=== PATIENT | male | born 1955 | race Caucasian/White ===

== ENCOUNTER 2017-03-08 17:53 | Inpatient (IN) | payer BC, OTHER ==
[2017-03-08 20:31] LABS: Glucose,Whole Blood 208 mg/dL (75-99)
[2017-03-08] MEDS ORDERED: ONDANSETRON 4 MG TAB PO PRN (23:18)
[2017-03-08] MEDS ORDERED: PROMETHAZINE 25 MG TAB PO PRN (23:19)
[2017-03-08] MEDS ORDERED: MELATONIN 1 MG TAB PO PRN (23:20)
[2017-03-08 23:31] LABS: Glucose,Whole Blood 167 mg/dL (75-99)
[2017-03-09] MEDS: SODIUM CHLORIDE 0.9% 1,000 ML IV SCH ×2 (00:05→21:04)
[2017-03-09] MEDS: ENOXAPARIN 40 MG/0.4 ML SYRINGE SQ SCH ×2 (00:05→08:35)
[2017-03-09] MEDS: PANTOPRAZOLE 40 MG TABLET PO SCH ×2 (00:07→21:03)
[2017-03-09] MEDS: ATORVASTATIN 20 MG TAB PO SCH ×2 (00:08→21:02)
[2017-03-09] MEDS: metFORMIN 500 MG TAB PO SCH ×3 (00:08→17:37)
[2017-03-09] MEDS: IBUPROFEN 200 MG TAB PO PRN ×4 (00:09→21:41)
[2017-03-09] MEDS: QUEtiapine 50 MG TAB PO SCH ×2 (00:09→21:03)
[2017-03-09] MEDS: LEVOTHYROXINE 137 MCG TAB PO SCH (06:07)
[2017-03-09 06:44] LABS: Glucose,Whole Blood 143 mg/dL (75-99)
[2017-03-09] MEDS: BUDESONIDE 0.5 MG/2 ML NEBU INHALATION SCH ×2 (07:53→19:26)
[2017-03-09] MEDS: SERTRALINE 50 MG TAB PO SCH (08:36)
[2017-03-09] MEDS: AMITRIPTYLINE HCL 25 MG TAB PO SCH (08:36)
[2017-03-09] MEDS: INSULIN LISPRO (humaLOG) 300 UNIT/3 ML VIAL SQ SCH ×4 (08:36→21:02)
[2017-03-09] MEDS: METOPROLOL SUCCINATE (ER) 100 MG TAB.ER.24H PO SCH (08:36)
[2017-03-09] MEDS: FLUTICASONE 50MCG/SPRAY NASAL 16GM EA NOSTRIL SCH ×2 (08:47→21:02)
[2017-03-09] MEDS: clonazePAM 1 MG TAB PO SCH ×3 (08:47→21:04)
[2017-03-09] MEDS: TIOTROPIUM 18 MCG/PUFF INHALER INHALATION SCH (11:28)
[2017-03-09 11:47] LABS: Aty Lym Flag Slight; CH 29.6; CHCM 33.5; HCT 37.1 % (39.0-53.0); HDW 2.65; HGB 12.9 gm/dL (13.0-17.5); MCH 30.9 pg (25.0-35.0); MCHC 34.8 g/dL (31.0-37.0); MCV 88.7 fL (80.0-100.0); Mean Platelet Volume 7.5; RBC 4.18 m/uL (4.30-5.90); RDW 13.5 % (11.5-15.5); WBC 12.1 k/uL (3.8-10.6); WBC (Perox) 12.54
[2017-03-09 11:55] LABS: ALT 47 U/L (21-72); AST 36 U/L (17-59); Alkaline Phosphatase 72 U/L (38-126); Anion Gap 11 mmol/L; Blood Urea Nitrogen 11 mg/dL (9-20); Calcium 8.2 mg/dL (8.4-10.2); Carbon Dioxide 22 mmol/L (22-30); Chloride 110 mmol/L (98-107); Glucose 175 mg/dL (74-99); Non-African American GFR(MDRD) >60 (>60 ml/min/1.73 sqM); Potassium 3.8 mmol/L (3.5-5.1); Sodium 143 mmol/L (137-145); Total Bilirubin 0.2 mg/dL (0.2-1.3)
[2017-03-09 11:58] LABS: Glucose,Whole Blood 154 mg/dL (75-99)
[2017-03-09 12:05] LABS: Total Protein 5.7 g/dL (6.3-8.2)
[2017-03-09 12:21] LABS: Add Differential Manual Differential
[2017-03-09 12:23] LABS: Nucleated Red Blood Cells 0 /100 WBC (0-0); Total Cells Counted 100
[2017-03-09 12:24] LABS: RBC Morphology Normal
[2017-03-09 17:04] LABS: Glucose,Whole Blood 100 mg/dL (75-99)
[2017-03-09 20:56] LABS: Glucose,Whole Blood 120 mg/dL (75-99)
[2017-03-10] MEDS: LEVOTHYROXINE 137 MCG TAB PO SCH (06:45)
[2017-03-10 07:23] LABS: Glucose,Whole Blood 92 mg/dL (75-99)
[2017-03-10] MEDS: AMITRIPTYLINE HCL 25 MG TAB PO SCH (08:30)
[2017-03-10] MEDS: FLUTICASONE 50MCG/SPRAY NASAL 16GM EA NOSTRIL SCH ×2 (08:30→20:22)
[2017-03-10] MEDS: metFORMIN 500 MG TAB PO SCH ×2 (08:30→17:23)
[2017-03-10] MEDS: SERTRALINE 50 MG TAB PO SCH (08:30)
[2017-03-10] MEDS: ENOXAPARIN 40 MG/0.4 ML SYRINGE SQ SCH (08:30)
[2017-03-10] MEDS: METOPROLOL SUCCINATE (ER) 100 MG TAB.ER.24H PO SCH (08:30)
[2017-03-10] MEDS: INSULIN LISPRO (humaLOG) 300 UNIT/3 ML VIAL SQ SCH ×4 (08:34→21:04)
[2017-03-10] MEDS: clonazePAM 1 MG TAB PO SCH ×3 (08:36→21:04)
[2017-03-10] MEDS: BUDESONIDE 0.5 MG/2 ML NEBU INHALATION SCH ×2 (08:44→20:47)
[2017-03-10] MEDS: TIOTROPIUM 18 MCG/PUFF INHALER INHALATION SCH (08:44)
--- NOTE | 2017-03-10 08:51 | HP ---
DATE OF ADMISSION: 03/08/2017 PRESENTING COMPLAINT: Depression, overdose. HISTORY OF PRESENTING COMPLAINT: This is a patient who had presented to [facility] is a poole of sentiments. Patient went and had an overdose of Klonopin, Celexa, Zoloft and metoprolol. Patient went into respiratory failure, had to be intubated. Patient had evidence of depression, subsequently patient was extubated. Patient is felt to have some aspiration pneumonitis. Patient is seen by Dr. Anahi Fitch from Pulmonary. There is no psychiatry available at [facility], hence I transferred the patient here to [facility]. Patient not suicidal any more but depressed. Patient now tolerating a diet. Did walk to the bathroom with support. Currently not suicidal but depressed. Breathing is stable. REVIEW OF SYSTEMS: CONSTITUTIONAL: Tired. HEENT: None. RESPIRATORY: Some shortness of breath before. CARDIOVASCULAR: None. GASTROINTESTINAL: None. GENITOURINARY: None. MUSCULOSKELETAL: Some pain in the joints. DERMATOLOGICAL: None. HEMATOLOGICAL: None. LYMPHATICS: None. PSYCHIATRY: Depressed. NEUROLOGICAL: None. Past history of depression, hypertension, hyperlipidemia, GERD, diabetes, osteoarthritis. PAST SURGICAL HISTORY: Cholecystectomy, hernia repair, right and left hand surgery, right foot surgery, ( ) surgery, cholecystectomy. SOCIAL HISTORY: Patient did some smoking, alcohol in the past. Currently not working, , patient is a [employer] and no blood products. Family history is reviewed and no contributory to presentation. HOME MEDICATIONS, CURRENT MEDICATIONS: 1. Elavil 25 mg q.h.s. 2. Lipitor 20 mg q.h.s. 3. Pulmicort 0.5 mg b.i.d. 4. Klonopin 1 mg p.o. t.i.d. 5. Lovenox 40 mg subQ daily. 6. Flonase. 7. Advil 200 mg q.6 p.r.n. 8. Humalog. 9. Synthroid 137 mcg a day. 10. Melatonin 1 mg q.h.s. p.r.n. 11. Glucophage 1000 mg p.o. b.i.d. 12. Toprol XL 100 mg p.o. daily. 13. Zofran 8 mg q.12 p.r.n. 14. Protonix 40 mg q.h.s. 15. Phenergan 12.5 q.6 p.r.n. 16. Seroquel 50 mg q,h.s. 17. Zoloft 50 mg p.o. daily. 18. Saline 10 mL an hour. 19. Spiriva 1 puff daily. Allergy to ADHESIVES AND CODEINE. On examination, temperature 97, pulse 62, respirations 16, blood pressure 106/76 , pulse ox 97% on room air. GENERAL APPEARANCE: Well built, BMI 33.2, lying in bed, not in distress. EYES: Pupils equal, conjunctivae normal. HEENT: Oral cavity normal. NECK: JVD not raised, mass not palpable. Respiratory effort normal. Lungs diminished breath sounds. Mild wheezing. CARDIOVASCULAR: First and second sounds are normal, no edema. ABDOMEN: Soft, nontender. Liver and spleen not palpable. LYMPHATICS: No lymph node palpable. PSYCHIATRY: Alert and oriented x3. Mood and affect somewhat depressed appearing. NEUROLOGICAL: Pupils equal, cranial nerves grossly intact. Power and sensation grossly intact. MUSCULOSKELETAL: Evidence of osteoarthritis in multiple joints. INVESTIGATIONS: White count 12.1, hemoglobin 12.9, potassium 3.8, BUN and creatinine is normal. ASSESSMENT: 1. Major depression with suicide attempt, not suicidal any more. 2. Obesity, body mass index 33.2. 3. Essential hypertension. 4. Hyperlipidemia. 5. Gastroesophageal reflux disease. 6. Diabetes mellitus type 2 on oral hypoglycemia. 7. Osteoarthritis in multiple joints. PLAN: Home medications will be continued. Accu-Cheks are being followed. Patient is medically stable from medical standpoint to transfer to [facility] psychiatric unit if patient accept there. On-call Psychiatry was consulted last night. Care was discussed with the patient. He is ready to go down there, if things are fine. MTDD
--- NOTE | 2017-03-10 09:18 | CONS ---
DATE OF SERVICE: 03/09/2017 IDENTIFYING DATA: A 61-year-old male patient. HISTORY OF PRESENT ILLNESS: Mr. Hitchcock is admitted to the medical floor at the [facility] as a transfer from [facility], status post multiple drug overdose. Patient related that not wanting to be on medications and last night, he thought he was fine. He says Friday morning he woke up like a tyrant. Says he has battled severe depression and anxiety for years and he had a feeling like he could not take this anymore and took all of his psychotropic medications as well as Synthroid and hypertension medication, 96 pills in all. He says as soon as he did he called 911. He was alone when he took the pills. He says he is glad that he is alive and never wants to be without his family. PSYCHIATRIC HISTORY: He sees a therapist, Nataliya through [employer] and psychiatrist, Dr. Richardson. He most recently has been on Klonopin, Zoloft and Seroquel as well as Elavil. He has never had any inpatient psychiatric hospitalizations. He has no history of suicide attempts. PSYCHIATRIC FAMILY HISTORY: Grandfather with PTSD. MEDICAL HISTORY: Hypertension, diabetes mellitus, IBS, asthma, COPD. CURRENT MEDICATIONS: Elavil 25 mg daily, Lipitor, Pulmicort, Klonopin 1 mg t.i.d., Lovenox, Flonase, Advil p.r.n., Humalog, Synthroid, melatonin p.r.n., Glucophage, Toprol XL, Zofran p.r.n., Protonix, Phenergan p.r.n., Seroquel 50 mg at bedtime, Zoloft 50 mg daily, Spiriva. DRUG AND ALCOHOL HISTORY: Patient drank alcohol when he was younger. Last alcoholic drink was in May. SOCIAL HISTORY: He lives with his and son. He has a younger daughter who is out of the house. He has applied for disability. 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 On mental status exam he is alert, cooperative with the interview. His speech was fluent, not rapid or pressured. His thought processes are organized. His mood is described as pretty down. His affect is restricted. He denies any thoughts of harm to self or others. No evidence of active psychosis cognitively. Appears to be grossly intact. IMPRESSION: 1. Major depressive disorder, recurrent, severe. 2. Unspecified anxiety disorder. 3. Rule out history of alcohol use disorder. PLAN: Recommend patient be admitted to the inpatient psychiatric unit after medical stabilization to stabilize depression and to continue to monitor regarding suicidal ideations. Patient is agreeable for voluntary admission. Currently being prescribed Zoloft, Seroquel, Klonopin and Elavil. Will monitor for any medication side effects. AST and ALT are within normal limits and BUN and creatinine are within normal limit. Consider change in psychotropic medications to help improve recent severe depression. Medications will further be assessed on the inpatient psychiatric unit. PAWAN
[2017-03-10] MEDS: IBUPROFEN 200 MG TAB PO PRN (10:44)
[2017-03-10 12:39] LABS: Glucose,Whole Blood 99 mg/dL (75-99)
--- NOTE | 2017-03-10 13:51 | DS ---
DATE OF ADMISSION: 03/08/17 DATE OF DISCHARGE: 03/09/17 FINAL DIAGNOSES: 1. Major depression, recurrent, possibly. 2. Obesity, body mass index 33.2. 3. Essential hypertension. 4. Hyperlipidemia. 5. Chronic gastroesophageal reflux disease. 6. Diabetes mellitus type 2, on oral hypoglycemia. 7. Primary osteoarthritis of multiple joints. 8. Possible chronic obstructive pulmonary disease. HOSPITAL COURSE: This patient was transferred from [facility] following an overdose of medications including Klonopin, Celexa, Zoloft, had to be intubated there. The patient self-extubated. I transferred patient here to [facility] because of availability of psychiatrist. Patient doing better, no suicidal anymore. Awaiting at this point evaluation by a psychiatrist. On exam, lungs decreased breath sounds. CARDIOVASCULAR: First and second sounds. Patient is tolerating his diet. PSYCH: Alert and oriented x3, slightly depressed appearing. DISPOSITION: 3 [place] if accepted by Psychiatry, otherwise, if cleared by them, patient will then go home. CURRENT MEDICATIONS: 1. Flonase 2 sprays each nostril b.i.d. 2. Synthroid 137 mcg p.o. daily. 3. Prilosec 20 mg p.o. q.h.s. 4. Klonopin 1 mg p.o. t.i.d. 5. Glucophage 1000 mg b.i.d. 6. Motrin 200 mg p.o. q.6 p.r.n. 7. Seroquel 50 mg p.o. q.h.s. 8. Zoloft 50 mg p.o. daily. 9. ProAir 1 to 2 puffs q.6 p.r.n. 10. Elavil 25 mg p.o. daily. 11. Lipitor 40 mg q.h.s. 12. Pulmicort 0.5 mg inhalation b.i.d. 13. Toprol XL 100 mg p.o. daily. 14. Spiriva 1 puff daily. Patient as outpatient should follow with Dr. Anna Kim. [facility] CENTERJosiah
[2017-03-10] MEDS: IBUPROFEN 400 MG TAB PO PRN ×2 (14:51→21:04)
[2017-03-10 17:04] LABS: Glucose,Whole Blood 115 mg/dL (75-99)
--- NOTE | 2017-03-10 18:08 | P.PN ---
Subjective Date of service 03/10/2017. Progress note being dictated for Dr. Graves. Interval history: This is a 61-year-old gentleman admitted with severe major depression, recurrent, attempted overdose of Klonopin, Celexa, Zoloft and multiple other medical issues. Evaluated by psychiatry and patient recommended for inpatient mental health unit. Suicide precautions maintained while awaiting transfer. Denies any chest pain, palpitations or increasing shortness of breath. Objective - Vital Signs Vital signs: Vital Signs Temp 97.2 F L 03/10/17 15:00 Pulse 54 L 03/10/17 15:00 Resp 18 03/10/17 15:00 BP 137/77 03/10/17 15:00 Pulse Ox 95 03/10/17 15:00 Intake & Output 03/09/17 03/10/17 03/10/17 18:59 06:59 18:59 Intake Total 720 Balance 720 Intake: Oral 720 Other: Voiding Method Toilet Toilet Urinal Urinal # Voids 3 0 3 - Exam PHYSICAL EXAM: VITAL SIGNS: As above GENERAL: [Sitting up in bed, no acute distress] HEENT: [Pupils equal conjunctiva normal. Oral mucosa moist] NECK: [Supple, no JVD] RESPIRATORY EFFORT:[ Normal] LUNGS: [Diminished, no wheezes rhonchi or crackles] CARDIOVASCULAR[ regular S1 and S2, no murmurs rubs or gallops, no edema] GI: [Abdomen soft, nontender, nondistended, no organomegaly, positive bowel sounds.] PSYCH: [Alert and oriented -3, mood and affect depressed appearing, cooperative NEURO: [No focal deficits, strength and sensation grossly intact] - Labs CBC & Chem 7: 03/09/17 11:09 03/09/17 11:09 Labs: Abnormal Lab Results - Last 24 Hours (Table) 03/09/17 03/10/17 Range/Units 20:45 16:59 POC Glucose (mg/dL) 120 H 115 H (75-99) mg/dL Assessment and Plan Plan: 1. [ Severe depression, recurrent]. 2. [ Attempted overdose, requiring intubation 3. [ Obesity, BMI 33.2]. 4. [ Hyperlipidemia]. 5. [ Hypertension]. 6. [Gastroesophageal reflux disease]. 7. [ Diabetes mellitus type 2]. 8. Osteoarthritis, multiple joints 9. COPD Plan: Continue on current medication regime ,monitoring and symptomatic treatment. Maintain suicide precautions. Awaiting discharge to inpatient mental health unit. Prognosis guarded. Further recommendations to follow. The impression and plan of care has been dictated as directed. : I performed a H&P examination of this patient and discussed the same with the dictator. I agree with the dictator's note. Any additional findings/opinions/ etc. will be noted.
[2017-03-10] MEDS: ATORVASTATIN 20 MG TAB PO SCH (20:22)
[2017-03-10] MEDS: QUEtiapine 50 MG TAB PO SCH (20:22)
[2017-03-10] MEDS: PANTOPRAZOLE 40 MG TABLET PO SCH (20:22)
[2017-03-10 21:17] LABS: Glucose,Whole Blood 110 mg/dL (75-99)
[2017-03-11] MEDS: SODIUM CHLORIDE 0.9% 1,000 ML IV SCH (00:19)
[2017-03-11] MEDS: LEVOTHYROXINE 137 MCG TAB PO SCH (06:32)
[2017-03-11 07:03] VITALS: TEMP 97
[2017-03-11] MEDS: INSULIN LISPRO (humaLOG) 300 UNIT/3 ML VIAL SQ SCH ×2 (07:19→12:33)
[2017-03-11 07:41] LABS: Glucose,Whole Blood 129 mg/dL (75-99)
[2017-03-11] MEDS: clonazePAM 1 MG TAB PO SCH (07:50)
[2017-03-11] MEDS: SERTRALINE 50 MG TAB PO SCH (07:51)
[2017-03-11] MEDS: metFORMIN 500 MG TAB PO SCH (07:51)
[2017-03-11] MEDS: AMITRIPTYLINE HCL 25 MG TAB PO SCH (07:51)
[2017-03-11] MEDS: ENOXAPARIN 40 MG/0.4 ML SYRINGE SQ SCH (07:51)
[2017-03-11] MEDS: METOPROLOL SUCCINATE (ER) 100 MG TAB.ER.24H PO SCH (07:51)
[2017-03-11] MEDS: FLUTICASONE 50MCG/SPRAY NASAL 16GM EA NOSTRIL SCH (07:52)
[2017-03-11] MEDS: IBUPROFEN 400 MG TAB PO PRN ×2 (07:56→14:57)
[2017-03-11] MEDS: BUDESONIDE 0.5 MG/2 ML NEBU INHALATION SCH (08:24)
[2017-03-11] MEDS: TIOTROPIUM 18 MCG/PUFF INHALER INHALATION SCH (08:24)
[2017-03-11 12:28] LABS: Glucose,Whole Blood 118 mg/dL (75-99)
--- NOTE | 2017-03-11 13:21 | P.DS ---
Providers Date of admission: 03/08/17 20:02 Expected date of discharge: 03/11/17 Attending physician: Barrington Graves Final Diagnoses: Consults: 03/08/17 22:50 Consult Physician Stat Consulting Provider: Natasha Jackson Consult Reason/Comments: attempted sucide Do you want consulting provider notified?: Yes Primary care physician: Anna Kim Hospital Course: 1. [ Severe depression, recurrent]. 2. [ Attempted overdose, requiring intubation 3. [ Obesity, BMI 33.2]. 4. [ Hyperlipidemia]. 5. [ Hypertension]. 6. [Gastroesophageal reflux disease]. 7. [ Diabetes mellitus type 2]. 8. Osteoarthritis, multiple joints 9. COPD Hospital course:This is a 61-year-old gentleman admitted with severe major depression, recurrent, attempted overdose of Klonopin, Celexa, Zoloft and multiple other medical issues. Evaluated by psychiatry and patient recommended/ accepted for inpatient mental health unit. Patient is medically cleared for discharge to mental health unit. Patient is being discharged in a stable condition with guarded prognosis. The impression and plan of care has been dictated as directed as a scribe. Dr. Beltran performed a H&P examination of this patient and discussed the same with the dictator. I agree with the dictator's note. Any additional findings/opinions/ etc. will be noted. Patient Condition at Discharge: Stable Plan - Discharge Summary New Discharge Prescriptions: New Amitriptyline HCl [Elavil] 25 mg PO DAILY tab Atorvastatin [Lipitor] 20 mg PO HS tab Budesonide [Pulmicort] 0.5 mg INHALATION RT-BID neb Metoprolol Succinate (ER) [Toprol XL] 100 mg PO DAILY tab Tiotropium 18 Mcg/Puff [Spiriva] 1 puff INHALATION RT-DAILY inhaler Continue metFORMIN HCL [Glucophage] 1,000 mg PO BID Fluticasone Propionate [Flonase] 2 spray EA NOSTRIL BID Omeprazole [PriLOSEC] 20 mg PO HS clonazePAM [KlonoPIN] 1 mg PO TID Levothyroxine Sodium [Synthroid] 137 mcg PO DAILY QUEtiapine [SEROquel] 50 mg PO HS Sertraline [Zoloft] 50 mg PO DAILY Ibuprofen [Motrin] 200 mg PO Q6HR PRN PRN Reason: Pain Albuterol Sulfate [Proair Hfa] 1 - 2 puff INHALATION RT-Q6H PRN PRN Reason: sob Discontinued Metoprolol Tartrate [Lopressor] 100 mg PO DAILY Discharge Medication List Fluticasone Propionate [Flonase] 2 spray EA NOSTRIL BID 06/09/14 [History] Levothyroxine Sodium [Synthroid] 137 mcg PO DAILY 06/09/14 [History] Omeprazole [PriLOSEC] 20 mg PO HS 06/09/14 [History] clonazePAM [KlonoPIN] 1 mg PO TID 06/09/14 [History] metFORMIN HCL [Glucophage] 1,000 mg PO BID 06/09/14 [History] Ibuprofen [Motrin] 200 mg PO Q6HR PRN 03/08/17 [History] QUEtiapine [SEROquel] 50 mg PO HS 03/08/17 [History] Sertraline [Zoloft] 50 mg PO DAILY 03/08/17 [History] Albuterol Sulfate [Proair Hfa] 1 - 2 puff INHALATION RT-Q6H PRN 03/09/17 [ History] Amitriptyline HCl [Elavil] 25 mg PO DAILY tab 03/09/17 [Rx] Atorvastatin [Lipitor] 20 mg PO HS tab 03/09/17 [Rx] Budesonide [Pulmicort] 0.5 mg INHALATION RT-BID neb 03/09/17 [Rx] Metoprolol Succinate (ER) [Toprol XL] 100 mg PO DAILY tab 03/09/17 [Rx] Tiotropium 18 Mcg/Puff [Spiriva] 1 puff INHALATION RT-DAILY inhaler 03/09/17 [ Rx] Patient Instructions/Handouts: Type 2 Diabetes in Adults (DC) Activity/Diet/Wound Care/Special Instructions: stable for dc to [facility] Discharge Disposition: TRANSFER TO PSYCH HOSP/UNIT
[2017-03-11 14:47] VITALS: BP 133/75; PULSE 61; RESP 20
== END 2017-03-11 15:47 | DRG 885 ==
LOC: 4MS4W 20:02
PROVIDERS: ADMIT Hospitalist; ATTEND Hospitalist
DX: F33.2 Major depressive disorder, recurrent severe without psychotic features (principal); E11.9 Type 2 diabetes mellitus without complications; I10 Essential (primary) hypertension; E78.5 Hyperlipidemia, unspecified; K21.9 Gastro-esophageal reflux disease without esophagitis; J44.9 Chronic obstructive pulmonary disease, unspecified; F41.9 Anxiety disorder, unspecified; K58.9 Irritable bowel syndrome, unspecified; E66.9 Obesity, unspecified; M19.91 Primary osteoarthritis, unspecified site; Z91.5 Personal history of self-harm; Z79.899 Other long term (current) drug therapy; Z88.5 Allergy status to narcotic agent; Z91.048 Other nonmedicinal substance allergy status; Z87.09 Personal history of other diseases of the respiratory system; Z56.0 Unemployment, unspecified; Z90.49 Acquired absence of other specified parts of digestive tract; Z81.8 Family history of other mental and behavioral disorders; Z87.891 Personal history of nicotine dependence; Z79.1 Long term (current) use of non-steroidal anti-inflammatories (NSAID); Z79.4 Long term (current) use of insulin; Z79.51 Long term (current) use of inhaled steroids
CPT/HCPCS: 80053; 85025; 94640

== ENCOUNTER 2017-03-11 14:51 | Inpatient (IN) | payer MEDICAID ==
[2017-03-11] MEDS ORDERED: MAG HYDROX/AL HYDROX/SIMETH 30 ML CUP PO PRN (15:15)
[2017-03-11] MEDS ORDERED: MAGNESIUM HYDROXIDE 2,400 MG/10 ML CUP PO PRN (15:15)
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
[2017-03-11] MEDS ORDERED: IBUPROFEN 200 MG TAB PO PRN (17:26)
[2017-03-11] MEDS ORDERED: ALBUTEROL INHALER 60 PUFF/8 GM INHALER INHALATION PRN (17:26)
[2017-03-11 18:22] LABS: Glucose,Whole Blood 115 mg/dL (75-99)
[2017-03-11] MEDS: INSULIN LISPRO (humaLOG) 300 UNIT/3 ML VIAL SQ SCH ×2 (18:23→20:32)
[2017-03-11] MEDS: ALBUTEROL INHALER 60 PUFF/8 GM INHALER INHALATION PRN (19:51)
[2017-03-11] MEDS: BUDESONIDE 0.5 MG/2 ML NEBU INHALATION SCH (19:51)
[2017-03-11 20:33] LABS: Glucose,Whole Blood 122 mg/dL (75-99)
[2017-03-11] MEDS: FLUTICASONE 50MCG/SPRAY NASAL 16GM EA NOSTRIL SCH (20:33)
[2017-03-11] MEDS: metFORMIN 500 MG TAB PO SCH (20:34)
[2017-03-11] MEDS: ATORVASTATIN 20 MG TAB PO SCH (20:34)
[2017-03-11] MEDS: PANTOPRAZOLE 40 MG TABLET PO SCH (20:34)
[2017-03-11] MEDS: QUEtiapine 50 MG TAB PO SCH (20:34)
[2017-03-11] MEDS: ACETAMINOPHEN TAB 325 MG TAB PO PRN (20:38)
[2017-03-11] MEDS ORDERED: QUEtiapine 50 MG TAB PO SCH (21:00)
[2017-03-11] MEDS ORDERED: clonazePAM 1 MG TAB PO SCH (22:00)
[2017-03-11] MEDS: clonazePAM 1 MG TAB PO SCH (22:42)
[2017-03-12] MEDS: LEVOTHYROXINE 137 MCG TAB PO SCH (06:05)
[2017-03-12 06:13] LABS: Glucose,Whole Blood 113 mg/dL (75-99)
[2017-03-12] MEDS: INSULIN LISPRO (humaLOG) 300 UNIT/3 ML VIAL SQ SCH ×4 (07:47→20:35)
[2017-03-12] MEDS: METOPROLOL SUCCINATE (ER) 100 MG TAB.ER.24H PO SCH (08:47)
[2017-03-12] MEDS: clonazePAM 1 MG TAB PO SCH ×3 (08:47→20:35)
[2017-03-12] MEDS: DULoxetine HCL 30 MG CAPSULE.DR PO SCH (08:47)
[2017-03-12] MEDS: metFORMIN 500 MG TAB PO SCH ×2 (08:47→20:35)
[2017-03-12] MEDS: FLUTICASONE 50MCG/SPRAY NASAL 16GM EA NOSTRIL SCH ×2 (08:47→20:35)
[2017-03-12] MEDS: AMITRIPTYLINE HCL 25 MG TAB PO SCH (08:47)
[2017-03-12] MEDS: ACETAMINOPHEN TAB 325 MG TAB PO PRN ×2 (08:48→13:27)
[2017-03-12] MEDS ORDERED: SERTRALINE 50 MG TAB PO SCH (09:00)
[2017-03-12] MEDS: BUDESONIDE 0.5 MG/2 ML NEBU INHALATION SCH ×2 (09:40→21:25)
[2017-03-12] MEDS: TIOTROPIUM 18 MCG/PUFF INHALER INHALATION SCH (09:40)
[2017-03-12 09:42] LABS: Basophils % (A) 1 %; CH 30.2; CHCM 33.7; Eosinophils # (A) 0.3 k/uL (0-0.7); Eosinophils % (A) 4 %; HDW 2.56; Luc # (Auto) 0.18; Luc % (Auto) 2; Lymphocytes # (A) 1.8 k/uL (1.0-4.8); Lymphocytes % (A) 23 %; MCH 29.3 pg (25.0-35.0); MCHC 32.5 g/dL (31.0-37.0); MCV 90.2 fL (80.0-100.0); Monocytes # (A) 0.5 k/uL (0-1.0); Monocytes % (A) 6 %; Neutrophils # (A) 5.1 k/uL (1.3-7.7); Neutrophils % (A) 64 %; RDW 13.7 % (11.5-15.5); WBC 7.9 k/uL (3.8-10.6); WBC (Perox) 7.86
--- NOTE | 2017-03-12 10:03 | P.PN ---
Progress Note - Text Interval History: Patient is a 61-year-old male who is transferred to the psychiatric unit from the medical floor after having taken an overdose of all of his medications at home on Friday morning. Patient was seen today and he reports that he slept okay and his appetite is fair. He reports a migraine headache this morning and states that he has been having them daily since his admission. Patient reports that he is still feeling overwhelmed but less so this morning. He states that he continues to feel depressed with no motivation or energy but has interest in doing things. He states he is not having any crying spells and reports no current suicidal thoughts. He reports that he has not attended any groups, thinking about it. He reports that he has not had any episodes of anxiety and received his first dose of Cymbalta this morning. Mental Status: Appearance/Attitude: Patient was in bed, appropriately dressed and cooperative. Behavior: Patient did not have any evidence of psychomotor agitation or retardation. Speech/Language: Speech was spontaneous, normal volume and rhythm and he was coherent. Thought Process: Patient was goal-directed and no evidence of circumstantial or tangential thought. Thought Content: Patient denied any auditory or visual hallucinations, denied any paranoid or delusional ideation and stated that he continues to feel unmotivated with no no energy to do things. He states that he would like to do things but just cannot motivate himself to do them. He states that he was feeling slightly overwhelmed yesterday but feeling less so today. Patient states he continues to have a low self-esteem and feeling hopeless. Suicidal/Homicidal Ideation: He denies any current suicidal ideation or plans and no current homicidal ideation. Sensorium/Cognition: Patient was alert and oriented to person, place, and time and his memory was grossly intact. Mood/Affect: Patient's mood remains depressed and he reports still feeling anxious when around people or in groups and his affect remains blunted. Insight/Judgement: Since insight and judgment are intact. Assessment: Patient remains depressed with little motivation or energy and states he still feels anxious in groups. He reports feeling hopeless about responding to the medication as he has not had a good response in the past. He reports no current suicidal ideation and states that his sleep was fair last evening and he is feeling less overwhelmed on the unit. Patient's appetite is fair and he reports continued migraine headaches unrelieved with Tylenol and Elavil. He reports no side effects from the current medications. Patient's labs reveal a low TSH and patient is on synthroid, elevated glucose but it is not fasting, no other significant abnormalities noted. Laboratory Last Values WBC 7.9 k/uL (3.8-10.6) 03/12/17 08:38 RBC 5.10 m/uL (4.30-5.90) 03/12/17 08:38 Hgb 15.0 gm/dL (13.0-17.5) 03/12/17 08:38 Hct 46.0 % (39.0-53.0) 03/12/17 08:38 MCV 90.2 fL (80.0-100.0) 03/12/17 08:38 MCH 29.3 pg (25.0-35.0) 03/12/17 08:38 MCHC 32.5 g/dL (31.0-37.0) 03/12/17 08:38 RDW 13.7 % (11.5-15.5) 03/12/17 08:38 Plt Count 271 k/uL (150-450) 03/12/17 08:38 Neutrophils % 64 % 03/12/17 08:38 Lymphocytes % 23 % 03/12/17 08:38 Monocytes % 6 % 03/12/17 08:38 Eosinophils % 4 % 03/12/17 08:38 Basophils % 1 % 03/12/17 08:38 Neutrophils # 5.1 k/uL (1.3-7.7) 03/12/17 08:38 Lymphocytes # 1.8 k/uL (1.0-4.8) 03/12/17 08:38 Monocytes # 0.5 k/uL (0-1.0) 03/12/17 08:38 Eosinophils # 0.3 k/uL (0-0.7) 03/12/17 08:38 Basophils # 0.0 k/uL (0-0.2) 03/12/17 08:38 Sodium 144 mmol/L (137-145) 03/12/17 08:38 Potassium 3.8 mmol/L (3.5-5.1) 03/12/17 08:38 Chloride 110 mmol/L (98-107) H 03/12/17 08:38 Carbon Dioxide 20 mmol/L (22-30) L 03/12/17 08:38 Anion Gap 14 mmol/L 03/12/17 08:38 BUN 12 mg/dL (9-20) 03/12/17 08:38 Creatinine 0.76 mg/dL (0.66-1.25) 03/12/17 08:38 Est GFR (MDRD) Af Amer >60 (>60 ml/min/1.73 sqM) 03/12/17 08:38 Est GFR (MDRD) Non-Af >60 (>60 ml/min/1.73 sqM) 03/12/17 08:38 Glucose 150 mg/dL (74-99) H 03/12/17 08:38 POC Glucose (mg/dL) 113 mg/dL (75-99) H 03/12/17 06:10 POC Glu Cutter V Groove ID Agatha Monk 03/12/17 06:10 Calcium 9.0 mg/dL (8.4-10.2) 03/12/17 08:38 Total Bilirubin 0.7 mg/dL (0.2-1.3) 03/12/17 08:38 AST 30 U/L (17-59) 03/12/17 08:38 ALT 50 U/L (21-72) 03/12/17 08:38 Alkaline Phosphatase 89 U/L (38-126) 03/12/17 08:38 Total Protein 6.7 g/dL (6.3-8.2) 03/12/17 08:38 Albumin 4.0 g/dL (3.5-5.0) 03/12/17 08:38 TSH 0.085 mIU/L (0.465-4.680) L 03/12/17 08:38 Plan: Patient will continue on the Cymbalta 30 mg in the morning to target his depression, Seroquel 50 mg daily at bedtime to target his sleep and Klonopin 1 mg 3 times a day to target his anxiety. Patient and I discussed tapering his Klonopin once he is on a higher dose of Cymbalta, patient was agreeable with this plan. Patient will continue on Seroquel for his sleep as he has been taking this for over one year. Patient remains depressed, hopeless with poor motivation and energy and continues to require hospitalization to stabilize his depression. Patient was encouraged to attend groups and will remain in hospital to stabilize his mood.
[2017-03-12 10:15] LABS: ALT 50 U/L (21-72); AST 30 U/L (17-59); Alkaline Phosphatase 89 U/L (38-126); Anion Gap 14 mmol/L; Blood Urea Nitrogen 12 mg/dL (9-20); Carbon Dioxide 20 mmol/L (22-30); Chloride 110 mmol/L (98-107); Glucose 150 mg/dL (74-99); Non-African American GFR(MDRD) >60 (>60 ml/min/1.73 sqM); Potassium 3.8 mmol/L (3.5-5.1); Sodium 144 mmol/L (137-145); Total Bilirubin 0.7 mg/dL (0.2-1.3); Total Protein 6.7 g/dL (6.3-8.2)
[2017-03-12 12:32] LABS: Glucose,Whole Blood 88 mg/dL (75-99)
[2017-03-12 12:47] LABS: Hemoglobin A1C 6.9 % (4.2-6.1)
--- NOTE | 2017-03-12 17:19 | P.CONS ---
History of Present Illness - Reason for Consult medical clearance, hypertension, diabetes mellitus type 2. - History of Present Illness 61-year-old with major depression with attempted overdose on Klonopin and Celexa and Zoloft.. Patient was discharged from my service yesterday to psychiatric floor. Patient denied any fever, chills, nausea, vomiting is complaining of migraine headache for which we'll use Fioricet without codeine. Review of Systems REVIEW OF SYSTEMS: CONSTITUTIONAL: No fever, no malaise, no fatigue. HEENT: No recent visual problems or hearing problems. Denied any sore throat. CARDIOVASCULAR: No chest pain, orthopnea, PND, no palpitations, no syncope. PULMONARY: No shortness of breath, no cough, no hemoptysis. GASTROINTESTINAL: No diarrhea, no nausea, no vomiting, no abdominal pain. Normoactive bowel sounds. NEUROLOGICAL: No headaches, no weakness, no numbness. HEMATOLOGICAL: Denies any bleeding or petechiae. GENITOURINARY: Denies any burning micturition, frequency, or urgency. MUSCULOSKELETAL/RHEUMATOLOGICAL: Denies any joint pain, swelling, or any muscle pain. ENDOCRINE: Denies any polyuria or polydipsia. The rest of the 14-point review of systems is negative. Past Medical History Past Medical History: Asthma, Diabetes Mellitus, GERD/Reflux, Hyperlipidemia, Hypertension, Thyroid Disorder Additional Past Medical History / Comment(s): IBS, ETOH History of Any Multi-Drug Resistant Organisms: None Reported Past Surgical History: Cholecystectomy, Hernia Repair, Orthopedic Surgery Additional Past Surgical History / Comment(s): HERNIA-UMBILICAL & RT ING. RT & LT HAND SURGERY. RT FOOT SURGERY. 4 NASAL SURGERIES. HENRIQUE 1997 Additional Past Anesthesia/Blood Transfusion Reaction / Comm: PT IS JEHOVAH WITNESS REQUESTS NO BLOOD PRODUCTS Past Psychological History: ADD/ADHD, Anxiety, Depression Smoking Status: Former smoker Medications and Allergies Home Medications Medication Instructions Recorded Confirmed Type Fluticasone Propionate [Flonase] 2 spray EA NOSTRIL BID 06/09/14 03/11/17 History Levothyroxine Sodium [Synthroid] 137 mcg PO DAILY 06/09/14 03/11/17 History Omeprazole [PriLOSEC] 20 mg PO HS 06/09/14 03/11/17 History clonazePAM [KlonoPIN] 1 mg PO TID 06/09/14 03/11/17 History metFORMIN HCL [Glucophage] 1,000 mg PO BID 06/09/14 03/11/17 History Ibuprofen [Motrin] 200 mg PO Q6HR PRN 03/08/17 03/11/17 History QUEtiapine [SEROquel] 50 mg PO HS 03/08/17 03/11/17 History Sertraline [Zoloft] 50 mg PO DAILY 03/08/17 03/11/17 History Albuterol Sulfate [Proair Hfa] 1 - 2 puff INHALATION RT-Q6H PRN 03/09/17 History Allergies Allergy/AdvReac Type Severity Reaction Status Date / Time adhesive Allergy Severe Rash & Verified 03/11/17 15:37 BLISTERS codeine AdvReac Nausea & Verified 03/11/17 15:37 Vomiting Physical Exam Vitals: Vital Signs Temp Pulse Pulse Pulse Resp BP BP 03/12/17 08:52 85 18 109/77 03/12/17 06:50 97.7 F 63 18 119/70 03/11/17 20:05 80 03/11/17 19:53 76 PHYSICAL EXAMINATION: GENERAL: The patient is alert and oriented x3, not in any acute distress. Well developed, well nourished. HEENT: Pupils are round and equally reacting to light. EOMI. No scleral icterus. No conjunctival pallor. Normocephalic, atraumatic. No pharyngeal erythema. No thyromegaly. CARDIOVASCULAR: S1 and S2 present. No murmurs, rubs, or gallops. PULMONARY: Chest is clear to auscultation, no wheezing or crackles. ABDOMEN: Soft, nontender, nondistended, normoactive bowel sounds. No palpable organomegaly. MUSCULOSKELETAL: No joint swelling or deformity. EXTREMITIES: No cyanosis, clubbing, or pedal edema. NEUROLOGICAL: Gross neurological examination did not reveal any focal deficits. SKIN: No rashes. Results CBC & Chem 7: 03/12/17 08:38 03/12/17 08:38 Labs: Abnormal Lab Results - Last 24 Hours (Table) 03/11/17 03/11/17 03/12/17 Range/Units 18:17 20:31 06:10 Chloride (98-107) mmol/L Carbon Dioxide (22-30) mmol/L Glucose (74-99) mg/dL POC Glucose (mg/dL) 115 H 122 H 113 H (75-99) mg/dL Hemoglobin A1c (4.2-6.1) % TSH (0.465-4.680) mIU/L 03/12/17 03/12/17 Range/Units 08:38 08:38 Chloride 110 H (98-107) mmol/L Carbon Dioxide 20 L (22-30) mmol/L Glucose 150 H (74-99) mg/dL POC Glucose (mg/dL) (75-99) mg/dL Hemoglobin A1c 6.9 H (4.2-6.1) % TSH 0.085 L (0.465-4.680) mIU/L Assessment and Plan Plan: #1 severe depression to attempt to commit suicide and overdose on medications. 2 headaches secondary to his chronic migraine. B hyperlipidemia #4 obesity #5 hypertension 6 type 2 diabetes mellitus 7 COPD without any acute exacerbation plan: His inpatient medications were reviewed. Will add Fioricet for his headache no further recommendations. Will commute to follow an as-needed basis.
[2017-03-12] MEDS ORDERED: BUTALB/APAP/CAFF 50-325-40MG TAB PO PRN (17:20)
[2017-03-12 17:45] LABS: Glucose,Whole Blood 104 mg/dL (75-99)
[2017-03-12 20:18] LABS: Glucose,Whole Blood 140 mg/dL (75-99)
[2017-03-12] MEDS: ATORVASTATIN 20 MG TAB PO SCH (20:35)
[2017-03-12] MEDS: PANTOPRAZOLE 40 MG TABLET PO SCH (20:35)
[2017-03-12] MEDS: QUEtiapine 50 MG TAB PO SCH (20:35)
[2017-03-13 06:05] LABS: Glucose,Whole Blood 105 mg/dL (75-99)
[2017-03-13] MEDS: INSULIN LISPRO (humaLOG) 300 UNIT/3 ML VIAL SQ SCH ×4 (09:13→20:06)
[2017-03-13] MEDS: FLUTICASONE 50MCG/SPRAY NASAL 16GM EA NOSTRIL SCH ×2 (09:14→20:58)
[2017-03-13] MEDS: DULoxetine HCL 30 MG CAPSULE.DR PO SCH (09:15)
[2017-03-13] MEDS: clonazePAM 1 MG TAB PO SCH ×3 (09:15→20:59)
[2017-03-13] MEDS: METOPROLOL SUCCINATE (ER) 100 MG TAB.ER.24H PO SCH (09:15)
[2017-03-13] MEDS: AMITRIPTYLINE HCL 25 MG TAB PO SCH (09:15)
[2017-03-13] MEDS: metFORMIN 500 MG TAB PO SCH ×2 (09:15→20:04)
[2017-03-13] MEDS: ALBUTEROL INHALER 60 PUFF/8 GM INHALER INHALATION PRN ×2 (09:56→20:56)
[2017-03-13] MEDS: TIOTROPIUM 18 MCG/PUFF INHALER INHALATION SCH (09:57)
[2017-03-13] MEDS: BUDESONIDE 0.5 MG/2 ML NEBU INHALATION SCH ×2 (09:59→20:57)
[2017-03-13] MEDS: LEVOTHYROXINE 137 MCG TAB PO SCH (10:50)
[2017-03-13 12:44] LABS: Glucose,Whole Blood 144 mg/dL (75-99)
[2017-03-13] MEDS: ACETAMINOPHEN TAB 325 MG TAB PO PRN (13:08)
--- NOTE | 2017-03-13 15:12 | P.PN ---
Progress Note - Text Interval History: Patient is a 61-year-old male who is admitted to the psychiatric unit after taking all of his medications at home last Friday, he states in an impulsive decision that he is unable to explain. Patient was seen today and he reports that he slept last evening and his headache is only a slight pressure now, he will attend groups today. Reports his appetite remains good. He reports no current nausea and states he is feeling less anxious and trying to think more positively. He reports no current suicidal ideation and states his depression is slightly improved due to his trying to think positively. Patient reports no side effects from the medication. He expresses concern about the fact that his memory is not as good for recent events over the last year. Mental Status: Appearance/Attitude: Patient was appropriately dressed, made good eye contact throughout the course of the interview and his attitude was cooperative. Behavior: Patient exhibited no psychomotor agitation or retardation. Speech/Language: Patient's speech was spontaneous and was of normal volume and rhythm. Thought Process: Patient was goal-directed and there was no evidence of any tangential or circumstantial thought. Thought Content: Patient denied any auditory or visual hallucinations and no delusional or paranoid ideation was elicited. Patient reported that he is attempting to think more positively, feeling less anxious and states his headache has decreased to the point where he will be able to attend groups today. Suicidal/Homicidal Ideation: He denies any current suicidal or homicidal ideation. Sensorium/Cognition: [Patient was alert and oriented to person, place, and time and his remote memory is grossly intact and he reports difficulties with his recent memory over the last year.] Mood/Affect: Patient's mood was less anxious and he reports feeling less depressed and more positive and his affect was appropriate. Insight/Judgement: Patient's insight and judgment are fair. Assessment: Patient states that he has tolerated the Cymbalta without side effects, states that his headache has decreased and reports that he is doing better today feeling less anxious and trying to be more positive in his outlook. Patient did not attend groups yesterday due to having a headache. Patient was less somatically focused today than yesterday. Plan: Patient and I discussed increasing his Cymbalta to 60 mg in the morning beginning tomorrow to target his depression, we will continue Seroquel 50 mg at bedtime to target his sleep and continue Klonopin 1 mg 3 times a day to target his anxiety, however I had a long discussion with the patient about the effects of Klonopin on memory and suggest as an outpatient once he is stable on the Cymbalta to consider a taper of this medication. I discussed with the patient that the Cymbalta will also assist with his complaints of anxiety. Patient and I discussed discharge tomorrow, he was agreeable with this plan. Patient was also begun on Fioricet for his headache with good response.
[2017-03-13 16:30] VITALS: RESP 16
[2017-03-13 17:01] LABS: Glucose,Whole Blood 103 mg/dL (75-99)
[2017-03-13] MEDS: ATORVASTATIN 20 MG TAB PO SCH (20:04)
[2017-03-13] MEDS: QUEtiapine 50 MG TAB PO SCH (20:04)
[2017-03-13 20:05] LABS: Glucose,Whole Blood 127 mg/dL (75-99)
[2017-03-13] MEDS: PANTOPRAZOLE 40 MG TABLET PO SCH (20:05)
[2017-03-13 21:39] VITALS: BMI 36.7
[2017-03-14] MEDS: LEVOTHYROXINE 137 MCG TAB PO SCH (05:52)
[2017-03-14 06:17] LABS: Glucose,Whole Blood 103 mg/dL (75-99)
[2017-03-14 06:40] VITALS: BP 112/64; PULSE 64; TEMP 97.5
[2017-03-14] MEDS: metFORMIN 500 MG TAB PO SCH (08:51)
[2017-03-14] MEDS: FLUTICASONE 50MCG/SPRAY NASAL 16GM EA NOSTRIL SCH (08:51)
[2017-03-14] MEDS: METOPROLOL SUCCINATE (ER) 100 MG TAB.ER.24H PO SCH (08:52)
[2017-03-14] MEDS: AMITRIPTYLINE HCL 25 MG TAB PO SCH (08:52)
[2017-03-14] MEDS: clonazePAM 1 MG TAB PO SCH ×2 (08:52→15:08)
[2017-03-14] MEDS: INSULIN LISPRO (humaLOG) 300 UNIT/3 ML VIAL SQ SCH ×3 (08:53→17:52)
[2017-03-14] MEDS ORDERED: DULoxetine HCL 60 MG CAPSULE.DR PO SCH (09:00)
[2017-03-14] MEDS: ALBUTEROL INHALER 60 PUFF/8 GM INHALER INHALATION PRN (11:28)
[2017-03-14] MEDS: TIOTROPIUM 18 MCG/PUFF INHALER INHALATION SCH (11:29)
[2017-03-14] MEDS: BUDESONIDE 0.5 MG/2 ML NEBU INHALATION SCH (11:30)
--- NOTE | 2017-03-14 12:05 | P.DS ---
Providers Date of admission: 03/11/17 15:30 Expected date of discharge: 03/14/17 Attending physician: Natasha Jackson MD Consults: 03/11/17 15:15 Consult Physician Routine Consulting Provider: Barrington Parker Consult Reason/Comments: H&P Medical management, continued from [facility] Do you want consulting provider notified?: Yes Primary care physician: Anna Kim Hospital Course: Discharge Diagnoses: Major depression, recurrent severe with anxious distress, history of hypertension, diabetes mellitus type 2, COPD, asthma and migraine headaches Reason for Admission: Patient is a 61-year-old male who on the Friday prior to his admission states he awakened in a rage and took all of his medications. Patient immediately regretted his action and called 911 and was transferred to [facility] where he was observed on the medical floor and then on the was transferred to the psychiatric unit on a voluntary basis. Patient is unable to give any precipitant to his suicide attempt. Patient had been treated at [facility] for depression and anxiety last several months and he had been receiving treatment for his depression for since 2007. Patient states his medication had also recently been changed due to not being able to afford his prior prescription. Patient states that he had been feeling depressed, with little motivation or interest in doing things since losing his job in September 2016. He states he has not been doing much, sitting at home staring out the window, not caring for his personal hygiene. He states he has never had suicidal ideation or made any prior attempts and is unable to explain his actions and states it was stupid and he immediately regretted it. Patient also reports having multiple physical symptoms recently, nausea, increasing headaches that have made it difficult for him to do much. He states he has always had poor self esteem, has had problems in groups and has felt depressed most of his life. Hospital Course: Patient was admitted on a voluntary basis, placed on suicide precautions and group therapy and activity therapy were ordered for the patient. Patient was continued on his prior medications for his hypertension, COPD, asthma, diabetes mellitus type 2 and his migraine headaches. Patient was continued on his Klonopin 1 mg 3 times a day and Seroquel 50 mg at bedtime and we discussed changing his antidepressant back to Cymbalta as he reports he had a better response to this medication. Patient was initially begun on Cymbalta 30 mg in the morning and titrated to a final dose of 60 mg in the morning. Patient did not attend groups while in the hospital stating initially that he had a severe migraine headache and after that that he wasn't in the mood and dislikes being in groups. Patient did not verbalize any suicidal ideation and continues to be unable to explain his actions prior to admission. He slept well and reported no anxiety while on the unit. He reported feeling less depressed and was less negative in his outlook and reported increasing energy. Patient had no adverse side effects from the medications. He was begun on Fioricet in the hospital for his migraine headaches. Laboratory Last Values WBC 7.9 k/uL (3.8-10.6) 03/12/17 08:38 RBC 5.10 m/uL (4.30-5.90) 03/12/17 08:38 Hgb 15.0 gm/dL (13.0-17.5) 03/12/17 08:38 Hct 46.0 % (39.0-53.0) 03/12/17 08:38 MCV 90.2 fL (80.0-100.0) 03/12/17 08:38 MCH 29.3 pg (25.0-35.0) 03/12/17 08:38 MCHC 32.5 g/dL (31.0-37.0) 03/12/17 08:38 RDW 13.7 % (11.5-15.5) 03/12/17 08:38 Plt Count 271 k/uL (150-450) 03/12/17 08:38 Neutrophils % 64 % 03/12/17 08:38 Lymphocytes % 23 % 03/12/17 08:38 Monocytes % 6 % 03/12/17 08:38 Eosinophils % 4 % 03/12/17 08:38 Basophils % 1 % 03/12/17 08:38 Neutrophils # 5.1 k/uL (1.3-7.7) 03/12/17 08:38 Lymphocytes # 1.8 k/uL (1.0-4.8) 03/12/17 08:38 Monocytes # 0.5 k/uL (0-1.0) 03/12/17 08:38 Eosinophils # 0.3 k/uL (0-0.7) 03/12/17 08:38 Basophils # 0.0 k/uL (0-0.2) 03/12/17 08:38 Sodium 144 mmol/L (137-145) 03/12/17 08:38 Potassium 3.8 mmol/L (3.5-5.1) 03/12/17 08:38 Chloride 110 mmol/L (98-107) H 03/12/17 08:38 Carbon Dioxide 20 mmol/L (22-30) L 03/12/17 08:38 Anion Gap 14 mmol/L 03/12/17 08:38 BUN 12 mg/dL (9-20) 03/12/17 08:38 Creatinine 0.76 mg/dL (0.66-1.25) 03/12/17 08:38 Est GFR (MDRD) Af Amer >60 (>60 ml/min/1.73 sqM) 03/12/17 08:38 Est GFR (MDRD) Non-Af >60 (>60 ml/min/1.73 sqM) 03/12/17 08:38 Glucose 150 mg/dL (74-99) H 03/12/17 08:38 POC Glucose (mg/dL) 103 mg/dL (75-99) H 03/14/17 06:15 POC Glu Cutter V Groove ID Ratna Lua 03/14/17 06:[address] Glu mg/dL 151 mg/dL 03/12/17 08:38 Hemoglobin A1c 6.9 % (4.2-6.1) H 03/12/17 08:38 Calcium 9.0 mg/dL (8.4-10.2) 03/12/17 08:38 Total Bilirubin 0.7 mg/dL (0.2-1.3) 03/12/17 08:38 AST 30 U/L (17-59) 03/12/17 08:38 ALT 50 U/L (21-72) 03/12/17 08:38 Alkaline Phosphatase 89 U/L (38-126) 03/12/17 08:38 Total Protein 6.7 g/dL (6.3-8.2) 03/12/17 08:38 Albumin 4.0 g/dL (3.5-5.0) 03/12/17 08:38 TSH 0.085 mIU/L (0.465-4.680) L 03/12/17 08:38 Free T4 1.93 ng/dL (0.78-2.19) 03/12/17 08:38 Discharge Mental Status:Appearance/Attitude: Patient was neatly and appropriately dressed, is grooming was adequate and his attitude was cooperative. Behavior: Patient did not exhibit any psychomotor retardation or agitation. Speech/Language: Patient's speech was spontaneous and of normal volume and rhythm. Thought Process: Patient's thought processes were goal directed and he was not circumstantial or tangential. Thought Content: He auditory or visual hallucinations and no delusions or paranoid ideation could be elicited. Patient stated that he is less negative in his outlook and is trying to focus on positive things in his life. He reported increasing energy and restful sleep. He stated he was more motivated to do things and was reflective on the last 4 months where he had been doing next to nothing. Patient was less somatically preoccupied and stated that from a physical standpoint he was feeling better, no complaints of nausea and his appetite was good. Suicidal/Homicidal Ideation: Patient denied any current suicidal ideation and continued to view his attempt as a mistake and states that he regretted it immediately, he denied any current homicidal ideation. Sensorium/Cognition: Patient was alert and oriented to person, place, and time and his memory is grossly intact, although patient reports that he feels his memory is not as sharp as it was in the past. Mood/Affect: Patient's mood remains slightly depressed, his affect is appropriate. Insight/Judgement: Patient's insight and judgment are fair. Risk Assessment: Patient's risk is low due to his interest in treatment, supportive family and regret about recent suicide attempt. Patient has no history of alcohol or drug use and has been compliant with his medications. Discharge Plan: Patient will be discharged to return home to live with his and he reports he will continue at [facility] for both therapy and medication management and he states he has an appointment on 03/25. Patient and I discussed the need for a more structured schedule at home and patient agreed with this and we discussed the need for exercise, and its benefits for his health. Encouraged patient to remain compliant with his medication and due to his complaints about his memory not being as sharp we discussed his Klonopin use. Patient will follow with his outpatient psychiatrist to titrate his dose of Klonopin to see if patient requires this. Patient will continue on Cymbalta 60 mg every morning to target his depression, Seroquel 50 mg daily at bedtime to target his sleep and he will continue on Klonopin 1 mg 3 times a day to target his anxiety. Patient will be given scripts for these 3 medications as well as for his Elavil 25 mg at bedtime that is being used for migraine headache. Patient reports that he has sufficient at home of his other medications and so no prescriptions will be given. Patient will follow-up with his primary care physician, Dr. Kim in the next week. Patient Condition at Discharge: Stable Plan - Discharge Summary New Discharge Prescriptions: New Amitriptyline HCl [Elavil] 25 mg PO DAILY #14 tab clonazePAM [KlonoPIN] 1 mg PO TID #42 tab DULoxetine HCL [Cymbalta] 60 mg PO DAILY #14 cap QUEtiapine [SEROquel] 50 mg PO HS #14 tab Continue metFORMIN HCL [Glucophage] 1,000 mg PO BID Fluticasone Propionate [Flonase] 2 spray EA NOSTRIL BID Omeprazole [PriLOSEC] 20 mg PO HS Levothyroxine Sodium [Synthroid] 137 mcg PO DAILY Ibuprofen [Motrin] 200 mg PO Q6HR PRN PRN Reason: Pain Albuterol Sulfate [Proair Hfa] 1 - 2 puff INHALATION RT-Q6H PRN PRN Reason: sob Atorvastatin [Lipitor] 20 mg PO HS tab Budesonide [Pulmicort] 0.5 mg INHALATION RT-BID neb Metoprolol Succinate (ER) [Toprol XL] 100 mg PO DAILY tab Tiotropium 18 Mcg/Puff [Spiriva] 1 puff INHALATION RT-DAILY inhaler Discontinued Sertraline [Zoloft] 50 mg PO DAILY Discharge Medication List Fluticasone Propionate [Flonase] 2 spray EA NOSTRIL BID 06/09/14 [History] Levothyroxine Sodium [Synthroid] 137 mcg PO DAILY 06/09/14 [History] Omeprazole [PriLOSEC] 20 mg PO HS 06/09/14 [History] metFORMIN HCL [Glucophage] 1,000 mg PO BID 06/09/14 [History] Ibuprofen [Motrin] 200 mg PO Q6HR PRN 03/08/17 [History] Albuterol Sulfate [Proair Hfa] 1 - 2 puff INHALATION RT-Q6H PRN 03/09/17 [ History] Atorvastatin [Lipitor] 20 mg PO HS tab 03/09/17 [Rx] Budesonide [Pulmicort] 0.5 mg INHALATION RT-BID neb 03/09/17 [Rx] Metoprolol Succinate (ER) [Toprol XL] 100 mg PO DAILY tab 03/09/17 [Rx] Tiotropium 18 Mcg/Puff [Spiriva] 1 puff INHALATION RT-DAILY inhaler 03/09/17 [ Rx] Amitriptyline HCl [Elavil] 25 mg PO DAILY #14 tab 03/14/17 [Rx] DULoxetine HCL [Cymbalta] 60 mg PO DAILY #14 cap 03/14/17 [Rx] QUEtiapine [SEROquel] 50 mg PO HS #14 tab 03/14/17 [Rx] clonazePAM [KlonoPIN] 1 mg PO TID #42 tab 03/14/17 [Rx] Follow up Appointment(s)/Referral(s): [facility] [Outside] - 03/25/17 8:30 am (03/25 @ [address] Richardson 03/25 @ 0900 with Rosaura) Anna Kim, [Primary Care Provider] - 1 Week Patient Instructions/Handouts: Depression (DC), Suicide Prevention for Adults ( DC), Opioid Overdose (DC) Activity/Diet/Wound Care/Special Instructions: Take your medications as prescribed. Keep your follow up appointment. Crisis Line [phone]. Discharge Disposition: HOME SELF-CARE
[2017-03-14 12:31] LABS: Glucose,Whole Blood 77 mg/dL (75-99)
[2017-03-14 17:55] LABS: Glucose,Whole Blood 98 mg/dL (75-99)
== END 2017-03-14 18:45 | disposition home or self-care (01) | DRG 885 ==
LOC: 3MHU 15:30 → UNDODISIN 16:29
PROVIDERS: ADMIT Psychiatry & Neurology Psychiatry; ATTEND Psychiatry & Neurology Psychiatry
DX: F33.2 Major depressive disorder, recurrent severe without psychotic features (principal); E11.9 Type 2 diabetes mellitus without complications; I10 Essential (primary) hypertension; F41.9 Anxiety disorder, unspecified; E78.5 Hyperlipidemia, unspecified; F90.9 Attention-deficit hyperactivity disorder, unspecified type; G43.909 Migraine, unspecified, not intractable, without status migrainosus; J44.9 Chronic obstructive pulmonary disease, unspecified; K21.9 Gastro-esophageal reflux disease without esophagitis; K58.9 Irritable bowel syndrome, unspecified; Z87.891 Personal history of nicotine dependence; T42.4X2D Poisoning by benzodiazepines, intentional self-harm, subsequent encounter; Z79.899 Other long term (current) drug therapy
CPT/HCPCS: 80053; 83036; 84439; 84443; 85025; 94640

== ENCOUNTER → 2017-06-03 | Outpatient (CLI) | payer OTHER ==
--- NOTE | 2017-06-03 10:49 | XR ---
EXAMINATION TYPE: XR knee limited LT DATE OF EXAM: 06/03/2017 CLINICAL HISTORY: pain TECHNIQUE: Two views of the left knee are obtained. COMPARISON: None. FINDINGS: There is no acute fracture/dislocation. The tri-compartment joint spaces appear within no rmal limits. The overlying soft tissue appears unremarkable. IMPRESSION: There is no acute fracture or dislocation ICD 10 NO FRACTURE, INITIAL EVALUATION
== END ==
LOC: RADXRMAIN 10:04
PROVIDERS: ATTEND Family Medicine
DX: M25.562 Pain in left knee (principal)

== ENCOUNTER → 2023-11-11 | Outpatient (CLI) | payer MEDICARE ==
[2023-11-11 10:27] LABS: Basophils # (A) 0.1 k/uL (0-0.2); Basophils % (A) 1 %; Eosinophils # (A) 0.3 k/uL (0-0.7); Eosinophils % (A) 5 %; HCT 41.7 % (39.0-53.0); HGB 13.5 gm/dL (13.0-17.5); Lymphocytes # (A) 1.4 k/uL (1.0-4.8); Lymphocytes % (A) 20 %; MCH 29.7 pg (25.0-35.0); MCHC 32.4 g/dL (31.0-37.0); MCV 91.9 fL (80.0-100.0); Mean Platelet Volume 7.1; Monocytes # (A) 0.4 k/uL (0-1.0); Monocytes % (A) 5 %; Neutrophils # (A) 4.7 k/uL (1.3-7.7); Neutrophils % (A) 66 %; Platelet Count 292 k/uL (150-450); RBC 4.54 m/uL (4.30-5.90); RDW 12.8 % (11.5-15.5); WBC 7.2 k/uL (3.8-10.6)
[2023-11-11 15:05] LABS: Total Eosinophil Count 332 #EOS/uL (150-300)
== END | disposition home or self-care (01) ==
LOC: LABWHC1 09:34
PROVIDERS: ATTEND Internal Medicine
DX: J45.40 Moderate persistent asthma, uncomplicated (principal)
CPT/HCPCS: 36415; 85008; 85025